=== PATIENT | female | born 1975 | race American Indian/Alaskan Native ===

== ENCOUNTER 2017-03-24 14:32 | Emergency (ER) | payer OTHER ==
[2017-03-24 14:37] VITALS: RESP 18
[2017-03-24] MEDS ORDERED: Sodium Chloride 0.9% 1,000 ML IV ONE (15:17)
[2017-03-24] MEDS ORDERED: Sodium Chloride 0.9% 1,000 ML ONE (15:24)
[2017-03-24 15:37] LABS: BASO % 0.5 % (0.0-2.0); LYMPH % 14.4 % (20.0-40.0); MEAN CELL VOLUME 88.1 fL (81.0-99.0); MEAN CORPUSCULAR HEMOGLOBIN 28.9 pg (27.0-31.0); MEAN CORPUSCULAR HGB CONC 32.7 g/dL (33.0-37.0); MEAN PLATELET VOLUME 9.2 fL (7.2-11.7); MONO % 6.2 % (0.0-10.0); NEUT # 6.3 K/uL (1.8-7.0); NEUT % 77.9 % (50.0-75.0); RBC 3.83 Mil/uL (3.80-5.20); RED CELL DISTRIBUTION WIDTH 13.6 % (11.5-14.5); WHITE BLOOD COUNT 8.1 K/uL (4.8-10.8)
[2017-03-24 15:38] LABS: EOS # 0.1 K/uL (0.0-0.7); LYMPH # 1.2 K/uL (1.0-4.3); MONO # 0.5 K/uL (0.0-0.8)
[2017-03-24 16:07] LABS: ALBUMIN 3.9 g/dL (3.5-5.0)
[2017-03-24 16:10] LABS: GFR AFRICAN-AMERICAN > 60; GFR NON-AFRICAN AMERICAN > 60
[2017-03-24 16:11] LABS: ALB/GLOB RATIO 1.1 (1.0-2.1); ALT/SGPT 40 U/L (9-52); AST/SGOT 43 U/L (14-36); BLOOD UREA NITROGEN 15 mg/dL (7-17); MAGNESIUM 1.8 mg/dL (1.6-2.3)
[2017-03-24] MEDS ORDERED: Potassium Chloride 20 mEq ER Tab PO STA (16:24)
[2017-03-24] MEDS ORDERED: Potassium Chloride 20 mEq ER Tab PO ONE (17:00)
[2017-03-24 17:56] LABS: SQUAMOUS EPITHIAL 3 /hpf (0-5); URINE BILIRUBIN NEGATIVE (NEGATIVE); URINE BLOOD 2+ (NEGATIVE); URINE CLARITY Clear (Clear); URINE COLOR Yellow (YELLOW); URINE GLUCOSE (UA) NORMAL (Normal); URINE LEUKOCYTE ESTERASE NEG Leu/uL (Negative); URINE NITRATE NEGATIVE (NEGATIVE); URINE PROTEIN NEGATIVE (NEGATIVE)
[2017-03-24 18:00] LABS: HCG,QUALITATIVE URINE NEGATIVE (NEGATIVE)
[2017-03-24 18:01] VITALS: BP 140/76; PULSE 68; TEMP 97.9
[2017-03-24 18:02] VITALS: O2SAT 99
--- NOTE | 2017-03-24 18:02 | C.PDOC ---
Time Seen by Provider: 03/24/17 15:07 Chief Complaint (Nursing): Dizziness/Lightheaded History Per: Patient Onset/Duration Of Symptoms: Days (1), Intermittent Episodes Current Symptoms Are (Timing): Still Present Associated Symptoms Preceding Syncopal Episode: Lightheadedness, Worse With Standing Seizure Or Post-ictal Symptoms: None Possible Causative Factor(s): Lightheaded W/Exertion Fall Associated With With Symptoms: No Severity: Moderate Recent travel outside of the [place]: No Additional History Per: Prior Records - Symptoms Of CVA Associated Symptoms: denies: Impaired Speech, Seizure Activity, New Vision Deficit(Left), New Vision Deficit(Right), Decreased Ability To Walk, New Confusion Recent Head Trauma: No Past Medical History Reviewed: Historical Data, Nursing Documentation, Vital Signs Vital Signs: Last Vital Signs Temp 97.9 F 03/24/17 18:00 Pulse 68 03/24/17 18:00 Resp 18 03/24/17 18:00 BP 140/76 03/24/17 18:00 Pulse Ox 99 03/24/17 18:02 - Medical History PMH: Gastritis, HTN Family History: States: Unknown Family Hx, Diabetes - Social History Hx Tobacco Use: No Hx Alcohol Use: Yes Hx Substance Use: No - Immunization History Hx Tetanus Toxoid Vaccination: No Hx Influenza Vaccination: No Hx Pneumococcal Vaccination: No Review Of Systems Except As Marked, All Systems Reviewed And Found Negative. Constitutional: Negative for: Fever, Weakness Cardiovascular: Negative for: Chest Pain Respiratory: Negative for: Shortness of Breath Gastrointestinal: Negative for: Vomiting, Abdominal Pain Genitourinary: Negative for: Dysuria Musculoskeletal: Positive for: Foot Pain (right, for 1 year). Negative for: Neck Pain, Back Pain Skin: Negative for: Rash Neurological: Negative for: Weakness, Numbness, Incoordination, Change in Speech , Confusion, Seizures, Altered Mental Status, Headache Physical Exam - Physical Exam Appears: Non-toxic, No Acute Distress Skin: Normal Color, Warm, Dry, No Rash Head: Atraumatic, Normacephalic Eye(s): bilateral: Normal Inspection, PERRL, EOMI Neck: Normal ROM, Supple Cardiovascular: Rhythm Regular Respiratory: Normal Breath Sounds, No Accessory Muscle Use Gastrointestinal/Abdominal: Soft, No Tenderness Back: No CVA Tenderness Extremity: Normal ROM, Tenderness (mild, at left calcaneous), No Pedal Edema, No Calf Tenderness, Capillary Refill (wnl), No Deformity, No Swelling Extremity: Bilateral: Normal Color And Temperature Pulses: Right Dorsalis Pedis: Normal Neurological/Psych: Oriented x3, Normal Speech, Normal Cognition, No Cerebellar Signs, Normal Motor, Normal Sensation ED Course And Treatment - Laboratory Results Result Diagrams: 03/24/17 15:33 03/24/17 15:33 Interpretation Of Abnormal: Mild hypokalemia, otherwise unremarkable. Urine POC: Negative ECG: Interpreted By Me, Viewed By Me ECG Rhythm: Sinus Rhythm, Nonspecific Changes ECG Interpretation: No Acute Changes Rate From EC O2 Sat by Pulse Oximetry: 99 Pulse Ox Interpretation: Normal Progress - Interventions Interventions:: Observation, Intravenous fluid - Data Reviewed Data Reviewed: Lab, EKG, Old records - Patient Status Patient status: Completely improved - Continuity of Care Discussed patient case with:: Patient, ED Nurse - Patient Plan Patient Plan: Discharge, F/U with PCP Disposition Counseled Patient/Family Regarding: Studies Performed, Diagnosis, Need For Followup - Disposition Referrals: Karlos Baxter MD [Staff Provider] - Disposition: HOME/ ROUTINE Disposition Time: 18:12 Condition: IMPROVED Additional Instructions: Follow up with your doctor within 1-2 days for further evaluation and treatment. Follow up with a [employer] (foot doctor). Return to the ER if you develop worsening of symptoms or if you have any other concerns. Instructions: Lightheadedness (ED), Heel Spur (ED) - Clinical Impression Clinical Impression: Dizziness, Chronic pain of right heel
--- NOTE | 2017-03-26 11:48 | CARD ---
APPROVED REPORT EKG Measurement Heart [id number] <Conclusion> Normal sinus rhythm Nonspecific T wave abnormality Abnormal ECG
== END 2017-03-24 18:23 | disposition home or self-care (01) ==
LOC: C.ER 14:32
DX: R42 Dizziness and giddiness (principal); G89.29 Other chronic pain; M79.671 Pain in right foot
CPT/HCPCS: 80053; 81001; 83735; 84484; 84703; 85025; 93005; 96374; 99285; J1885; J7040

== ENCOUNTER 2018-02-20 06:38 | Emergency (ER) | payer OTHER ==
[2018-02-20 06:39] VITALS: BMI 39.4
[2018-02-20 06:47] VITALS: TEMP 97.1
[2018-02-20 07:10] LABS: BASO # 0.1 K/uL (0.0-0.2); BASO % 0.9 % (0.0-2.0); EOS % 0.6 % (0.0-4.0); HEMOGLOBIN 12.8 g/dL (11.0-16.0); LYMPH # 1.7 K/uL (1.0-4.3); LYMPH % 21.9 % (20.0-40.0); MEAN CELL VOLUME 88.8 fL (81.0-99.0); MEAN CORPUSCULAR HEMOGLOBIN 29.1 pg (27.0-31.0); MEAN CORPUSCULAR HGB CONC 32.8 g/dL (33.0-37.0); MEAN PLATELET VOLUME 9.5 fL (7.2-11.7); MONO # 0.6 K/uL (0.0-0.8); MONO % 7.4 % (0.0-10.0); NEUT # 5.4 K/uL (1.8-7.0); NEUT % 69.2 % (50.0-75.0); NRBC % 0.1 % (0.0-2.0); RBC 4.39 Mil/uL (3.80-5.20); RED CELL DISTRIBUTION WIDTH 12.9 % (11.5-14.5); WHITE BLOOD COUNT 7.8 K/uL (4.8-10.8)
[2018-02-20 07:25] VITALS: RESP 18
[2018-02-20 07:36] LABS: ALB/GLOB RATIO 1.1 (1.0-2.1); ALBUMIN 4.5 g/dL (3.5-5.0); ALT/SGPT 23 U/L (9-52); AST/SGOT 34 U/L (14-36); BLOOD UREA NITROGEN 10 mg/dL (7-17); CALCIUM 8.8 mg/dl (8.6-10.4); GFR AFRICAN-AMERICAN > 60; GFR NON-AFRICAN AMERICAN > 60
[2018-02-20 07:40] LABS: HCG,QUALITATIVE URINE NEGATIVE (NEGATIVE)
[2018-02-20 07:46] LABS: SQUAMOUS EPITHIAL 1 /hpf (0-5); URINE AMORPHOUS SEDIMENT FEW /ul (<OCC); URINE BILIRUBIN NEGATIVE (NEGATIVE); URINE BLOOD 2+ (NEGATIVE); URINE CLARITY Hazy (Clear); URINE COLOR Yellow (YELLOW); URINE GLUCOSE (UA) 3+ mg/dL (Normal); URINE LEUKOCYTE ESTERASE NEG Leu/uL (Negative); URINE PROTEIN 1+ mg/dL (NEGATIVE); URINE UROBILINOGEN NORMAL mg/dL (0.2-1.0)
--- NOTE | 2018-02-20 08:14 | C.PDOC ---
History Of Present Illness Patient is a 42 y/o female who presents to the ED with a complaint of epigastric abdominal pain associated with nonbloody nausea and vomiting since midnight. Contrary to triage, patient notes abdominal pain radiates to upper chest and back. Denies any diarrhea, sick contact, recent travel, or Hx of abdominal surgeries. Time Seen by Provider: 02/20/18 07:09 Chief Complaint (Nursing): Chest Pain History Per: Patient History/Exam Limitations: no limitations Onset/Duration Of Symptoms: Hrs (since midnight) Current Symptoms Are (Timing): Still Present Associated Symptoms: Nausea, Other (nonbloody vomiting) Past Medical History Reviewed: Historical Data, Nursing Documentation, Vital Signs Vital Signs: Last Vital Signs Temp 97.1 F L 02/20/18 06:44 Pulse 80 02/20/18 10:16 Resp 18 02/20/18 10:16 BP 138/88 02/20/18 10:16 Pulse Ox 98 02/20/18 13:19 - Medical History PMH: Gastritis, HTN Surgical History: No Surg Hx Family History: States: Diabetes - Social History Hx Tobacco Use: No Hx Alcohol Use: Yes Hx Substance Use: No - Immunization History Hx Tetanus Toxoid Vaccination: No Hx Influenza Vaccination: No Hx Pneumococcal Vaccination: No Review Of Systems Gastrointestinal: Positive for: Abdominal Pain. Negative for: Diarrhea Physical Exam - Physical Exam Appears: Well, Non-toxic, No Acute Distress Skin: Normal Color, Warm, Dry Head: Atraumatic, Normacephalic Oral Mucosa: Moist Chest: Symmetrical Cardiovascular: Rhythm Regular, No Murmur Respiratory: Normal Breath Sounds, No Rales, No Rhonchi, No Wheezing Gastrointestinal/Abdominal: Bowel Sounds, Soft, Tenderness (tenderness to epigastrum), No Guarding, No Rebound Neurological/Psych: Oriented x3, Normal Speech, Normal Cognition ED Course And Treatment - Laboratory Results Result Diagrams: 02/20/18 07:05 02/20/18 07:05 ECG: Interpreted By Me, Viewed By Me ECG Rhythm: Sinus Rhythm Interpretation Of ECG: Normal axis, normal intervals. Nonspecific t wave changes. Rate From EC (bpm) O2 Sat by Pulse Oximetry: 98 - Other Rad obstructive series X-Ray: Interpreted by Me, Viewed By Me Interpretation: PROCEDURE: Radiographs of the chest and abdomen (obstructive series). HISTORY: abd. pain. COMPARISON: No prior. TECHNIQUE: AP radiograph of the chest, with upright and supine radiographs of the abdomen. FINDINGS: CHEST: Lungs: Clear. Cardiovascular: Normal size heart. No pulmonary vascular congestion. Pleura: No pleural fluid. No pneumothorax. Other findings: None. ABDOMEN AND PELVIS: Bowel: Mild constipation, otherwise unremarkable bowel gas pattern. No evidence of mechanical obstruction. Free air : None. Bones: Unremarkable. Other findings: None. IMPRESSION: Mild constipation, otherwise unremarkable radiographs of chest and abdomen. No evidence of mechanical bowel obstruction. Progress Note: Assessment: abdominal pain. EKG and obstructive series ordered. Protonix, zofran, and toradol administered. On re-eval, patient is resting comfortably and abdominal pain resolved. Discharge instructions discussed with patient and patient advised to follow up with urologist today. Medical Decision Making Medical Decision Making: patient states improvement. Discussed elevated blood sugar and need to follow up with pmd. patient discharged home and advised to follow up accordingly. Disposition Counseled Patient/Family Regarding: Studies Performed, Diagnosis, Need For Followup, Rx Given - Disposition Referrals: Karlos Baxter MD [Staff Provider] - Disposition: HOME/ ROUTINE Disposition Time: 09:42 Condition: IMPROVED Additional Instructions: follow up with your doctor within 2 days call to make an appointment take medications as prescribed your blood sugar was elevated and will require monitoring by your doctor return to RE if symptoms worsens or progress Prescriptions: Famotidine [Pepcid] 20 mg PO BID #20 tab Ondansetron ODT [Zofran ODT] 4 mg PO TID PRN #12 odt PRN Reason: Nausea/Vomiting traMADol [Ultram] 50 mg PO TID PRN #8 tab PRN Reason: Pain, Moderate (4-7) Instructions: Acute Abdomen (Belly Pain), Adult (DC) Forms: [facility] (Frisian), General Discharge Instructions - Clinical Impression Clinical Impression: Abdominal pain - Scribe Statement The provider has reviewed the documentation as recorded by the Scribe Ashley Peña All medical record entries made by the Scribe were at my direction and personally dictated by me. I have reviewed the chart and agree that the record accurately reflects my personal performance of the history, physical exam, medical decision making, and the department course for this patient. I have also personally directed, reviewed, and agree with the discharge instructions and disposition.
--- NOTE | 2018-02-20 08:33 | RAD ---
PROCEDURE: Radiographs of the chest and abdomen (obstructive series) HISTORY: abd. pain COMPARISON: No prior. TECHNIQUE: AP radiograph of the chest, with upright and supine radiographs of the abdomen. FINDINGS: CHEST: Lungs: Clear. Cardiovascular: Normal size heart. No pulmonary vascular congestion. Pleura: No pleural fluid. No pneumothorax. Other findings: None. ABDOMEN AND PELVIS: Bowel: Mild constipation, otherwise unremarkable bowel gas pattern. No evidence of mechanical obstruction. Free air: None. Bones: Unremarkable. Other findings: None. IMPRESSION: Mild constipation, otherwise unremarkable radiographs of chest and abdomen. No evidence of mechanical bowel obstruction.
[2018-02-20 10:17] VITALS: BP 138/88; PULSE 80
[2018-02-20 13:19] VITALS: O2SAT 98
--- NOTE | 2018-02-24 22:48 | CARD ---
APPROVED REPORT EKG Measurement Heart [id number] <Conclusion> Normal sinus rhythm Possible Left atrial enlargement Nonspecific T wave abnormality Prolonged QT Abnormal ECG
== END 2018-02-20 10:17 | disposition home or self-care (01) ==
LOC: C.ER 06:38
DX: R10.13 Epigastric pain (principal)
CPT/HCPCS: 74022; 80053; 81001; 83690; 84484; 84703; 85025; 96374; 96375; 96376; 99285; C9113; J1885; J2405

== ENCOUNTER 2018-05-07 17:03 | Emergency (ER) | payer OTHER ==
[2018-05-07 17:04] VITALS: BMI 39.4
[2018-05-07 17:51] VITALS: BP 147/83; PULSE 73; RESP 16; O2SAT 98
--- NOTE | 2018-05-07 18:31 | C.PDOC ---
History Of Present Illness 43 year old female presents to the emergency department for evaluation of a right second finger injury sustained two weeks ago. Patient states that her finger was accidentally pinched, and she is currently concerned about a persistent lesion to the inside of her finger. Otherwise, she states that she is able to use her hand without difficulty and denies swelling. Time Seen by Provider: 05/07/18 18:28 Chief Complaint (Nursing): Medical Clearance History Per: Patient History/Exam Limitations: no limitations Onset/Duration Of Symptoms: Other (two weeks) Current Symptoms Are (Timing): Still Present Past Medical History Reviewed: Historical Data, Nursing Documentation, Vital Signs Vital Signs: Last Vital Signs Temp Pulse 73 05/07/18 17:41 Resp 16 05/07/18 17:41 BP 147/83 05/07/18 17:41 Pulse Ox 98 05/07/18 18:31 - Medical History PMH: Gastritis, HTN Denies: Chronic Kidney Disease Surgical History: No Surg Hx Family History: States: Diabetes - Social History Hx Tobacco Use: No Hx Alcohol Use: Yes Hx Substance Use: No - Immunization History Hx Tetanus Toxoid Vaccination: No Hx Influenza Vaccination: No Hx Pneumococcal Vaccination: No Review Of Systems Except As Marked, All Systems Reviewed And Found Negative. Musculoskeletal: Positive for: Hand Pain (right second finger) Skin: Positive for: Lesions (right second finger). Negative for: Other ( swelling) Neurological: Negative for: Weakness, Numbness Physical Exam - Physical Exam Appears: Non-toxic, No Acute Distress Skin: Warm, Dry, Other (4mm healing blood blister over the PIP joint of the right second finger, flat, non-fluctuant, no cellulitis, no swelling) Head: Atraumatic, Normacephalic Eye(s): bilateral: Normal Inspection Nose: Normal Neck: Normal, Supple Chest: Symmetrical Cardiovascular: Rhythm Regular Respiratory: Normal Breath Sounds Extremity: Normal ROM (at the right second finger), No Tenderness, No Swelling ED Course And Treatment O2 Sat by Pulse Oximetry: 98 (RA) Pulse Ox Interpretation: Normal Progress Note: Patient is clear for discharge. Disposition Counseled Patient/Family Regarding: Diagnosis, Need For Followup - Disposition Referrals: YOUR,PMD [Other] Disposition: HOME/ ROUTINE Disposition Time: 18:30 Condition: GOOD Forms: [facility] (Belarusian), General Discharge Instructions - Clinical Impression Clinical Impression: Blister of finger without infection - Scribe Statement The provider has reviewed the documentation as recorded by the Scribe (Steve Blanco) Provider Attestation: All medical record entries made by the Scribe were at my direction and personally dictated by me. I have reviewed the chart and agree that the record accurately reflects my personal performance of the history, physical exam, medical decision making, and the department course for this patient. I have also personally directed, reviewed, and agree with the discharge instructions and disposition.
== END 2018-05-07 18:38 | disposition home or self-care (01) ==
LOC: C.ER 17:03
DX: S60.420A Blister (nonthermal) of right index finger, initial encounter (principal); W23.0XXA Caught, crushed, jammed, or pinched between moving objects, initial encounter; I10 Essential (primary) hypertension

== ENCOUNTER 2018-12-20 04:39 | Emergency (ER) | payer OTHER ==
[2018-12-20 04:40] VITALS: BMI 39.4
[2018-12-20 05:08] VITALS: TEMP 98.6; O2SAT 99
[2018-12-20 07:09] VITALS: BP 147/88; PULSE 78; RESP 14
--- NOTE | 2018-12-20 07:38 | C.PDOC ---
History Of Present Illness 43 year old female, whose PMHx includes constipation, presents to the ED for evaluation of constipation for two days. Patient reports taking Magnesium Citrate with minimal relief. She is able to tolerate PO intake and denies fever, chills. Time Seen by Provider: 12/20/18 05:12 Chief Complaint (Nursing): GI Problem History Per: Patient History/Exam Limitations: no limitations Onset/Duration Of Symptoms: Days (2) Current Symptoms Are (Timing): Still Present Additional History Per: Patient Past Medical History Reviewed: Historical Data, Nursing Documentation, Vital Signs Vital Signs: Last Vital Signs Temp 98.6 F 12/20/18 04:51 Pulse 78 12/20/18 07:08 Resp 14 12/20/18 07:08 BP 147/88 12/20/18 07:08 Pulse Ox 99 12/20/18 07:08 - Medical History PMH: Gastritis, HTN Denies: Chronic Kidney Disease Surgical History: No Surg Hx Family History: States: Diabetes - Social History Hx Tobacco Use: No Hx Alcohol Use: Yes Hx Substance Use: No - Immunization History Hx Tetanus Toxoid Vaccination: No Hx Influenza Vaccination: No Hx Pneumococcal Vaccination: No Review Of Systems Constitutional: Negative for: Fever, Chills Gastrointestinal: Positive for: Constipation Physical Exam - Physical Exam Appears: Non-toxic, No Acute Distress Skin: Normal Color, Warm, Dry Head: Atraumatic, Normacephalic Eye(s): bilateral: Normal Inspection Oral Mucosa: Moist Neck: Supple Chest: Symmetrical, No Deformity, No Tenderness Cardiovascular: Rhythm Regular, No Murmur Respiratory: Normal Breath Sounds, No Rales, No Rhonchi, No Wheezing Gastrointestinal/Abdominal: Soft, No Tenderness, No Guarding, No Rebound Extremity: Normal ROM, Capillary Refill (less than 2 seconds ) Neurological/Psych: Oriented x3, Normal Speech, Normal Cognition ED Course And Treatment O2 Sat by Pulse Oximetry: 99 (on RA ) Pulse Ox Interpretation: Normal Medical Decision Making Medical Decision Making: Abdomen XR ordered and reviewed. Toradol IM given. On reassessment, patient is resting comfortably, showing no signs of distress and is stable for discharge. Patient is advised to f/u with her PMD within 1-2 days for further evaluation. Disposition - Disposition Referrals: Ramon Perez, [Non-Staff] - Disposition: HOME/ ROUTINE Disposition Time: 06:25 Condition: GOOD Additional Instructions: ASMITA NG, thank you for letting us take care of you today. The emergency medical care you received today was directed at your acute symptoms. If you were prescribed any medication, please fill it and take as directed. It may take several days for your symptoms to resolve. Return to the Emergency Department if your symptoms worsen, do not improve, or if you have any other problems. Please contact your doctor or call one of the physicians/clinics you have been referred to that are listed on the Patient Visit Information form that is included in your discharge packet. Bring any paperwork you were given at discharge with you along with any medications you are taking to your follow up visit. Our treatment cannot replace ongoing medical care by a primary care provider outside of the emergency department. Thank you for allowing the [facility] team to be part of your care today. Follow up with your primary care doctor for re-evaluation and further management. Prescriptions: Docusate [Colace] 100 mg PO Q8 PRN #20 cap PRN Reason: Constipation Sod Phos,M-B/Na Phos,Di-Ba [Fleet Enema] 133 ml RC ONCE PRN #2 enema PRN Reason: Constipation Instructions: Constipation, Adult (DC) Forms: [employer] (Sammarinese), Work Excuse - Clinical Impression Clinical Impression: Constipation - Scribe Statement The provider has reviewed the documentation as recorded by the Scribe (Anat Noguera) Provider Attestation: All medical record entries made by the Scribe were at my direction and personally dictated by me. I have reviewed the chart and agree that the record accurately reflects my personal performance of the history, physical exam, medical decision making, and the department course for this patient. I have also personally directed, reviewed, and agree with the discharge instructions and disposition.
--- NOTE | 2018-12-20 13:24 | RAD ---
Date of service: 12/20/2018 HISTORY: Chest pain, back pain and abdominal pain. COMPARISON: None available. TECHNIQUE: 1 view obtained. FINDINGS: BOWEL: Normal. No obstruction. No free air. BONES: Normal. OTHER FINDINGS: None. IMPRESSION: Unremarkable examination.
== END 2018-12-20 07:09 | disposition home or self-care (01) ==
LOC: C.ER 04:39
DX: K59.00 Constipation, unspecified (principal)

== ENCOUNTER 2018-12-26 22:48 | Observation (INO) | payer OTHER ==
[2018-12-26 22:49] VITALS: BMI 39.4
[2018-12-26] MEDS ORDERED: Sodium Chloride 0.9% 1,000 ML IV ONE (23:45)
--- NOTE | 2018-12-26 23:46 | C.PDOC ---
History Of Present Illness 43 year old female presents to the ED c/p chest pain and abdominal pain for the past few days. Patient reports chest pain worsens with deep breaths. Patient was seen in the ED on Thursday for same symptoms. Patient denies headache, visual changes, SOB, palpitations, rash, nausea, vomit, diarrhea, weakness, numbness. Chief Complaint (Nursing): Chest Pain History Per: Patient History/Exam Limitations: no limitations Onset/Duration Of Symptoms: Days Current Symptoms Are (Timing): Still Present Quality: "Pain" Exacerbating Factors: Deep Breathing Recent travel outside of the [place]: No Additional History Per: Patient Past Medical History Reviewed: Historical Data, Nursing Documentation, Vital Signs Vital Signs: Last Vital Signs Temp 98.4 F 12/26/18 22:54 Pulse 70 12/26/18 22:54 Resp 18 12/26/18 22:54 BP 160/117 H 12/26/18 22:54 Pulse Ox 99 12/26/18 22:54 - Medical History PMH: Gastritis, HTN Denies: Chronic Kidney Disease Surgical History: No Surg Hx Family History: States: Diabetes - Social History Hx Tobacco Use: No Hx Alcohol Use: Yes Hx Substance Use: No - Immunization History Hx Tetanus Toxoid Vaccination: No Hx Influenza Vaccination: No Hx Pneumococcal Vaccination: No Review Of Systems Constitutional: Negative for: Fever, Chills Cardiovascular: Positive for: Chest Pain. Negative for: Palpitations Respiratory: Negative for: Cough, Shortness of Breath Gastrointestinal: Positive for: Abdominal Pain. Negative for: Nausea, Vomiting, Diarrhea Genitourinary: Negative for: Dysuria, Hematuria Musculoskeletal: Negative for: Back Pain Skin: Negative for: Rash Physical Exam - Physical Exam Appears: Non-toxic, No Acute Distress Skin: Normal Color, Warm, Dry Head: Atraumatic, Normacephalic Eye(s): bilateral: Normal Inspection Oral Mucosa: Moist Neck: Normal ROM, Supple Chest: Symmetrical, No Tenderness Cardiovascular: Rhythm Regular Respiratory: Normal Breath Sounds, No Rales, No Rhonchi, No Wheezing Gastrointestinal/Abdominal: Soft, Tenderness (Epigastric/upper quadrants), No Distention, No Guarding, No Rebound Back: No CVA Tenderness Extremity: Normal ROM, No Tenderness, No Swelling Neurological/Psych: Oriented x3, Normal Speech, Normal Cognition Gait: Steady ED Course And Treatment - Laboratory Results Result Diagrams: 12/26/18 23:59 12/26/18 23:59 ECG: Interpreted By Me, Viewed By Me ECG Rhythm: Sinus Rhythm ECG Interpretation: Normal, No Acute Changes Interpretation Of ECG: NSR, normal tracings. Rate From EC O2 Sat by Pulse Oximetry: 99 (ON RA) Pulse Ox Interpretation: Normal - CT Scan/US CT abd/pelvis Other Rad Studies (CT/US): Read By Radiologist, Radiology Report Reviewed CT/US Interpretation: T SCAN OF THE ABDOMEN AND PELVIS WITHOUT ORAL OR IV CONTRAST. CLINICAL INDICATION: Abdominal pain. TECHNIQUE: Axial and reformatted sagittal and coronal images of the abdomen pelvis obtained without IV contrast administration. COMPARISON: None. FINDINGS: The visualized lung bases are unremarkable. Normal unenhanced liver. Minimal diffuse thickening of the gallbladder and nondilated extrahepatic biliary system. Normal unenhanced spleen. Normal pancreas. . Normal bilateral adrenal glands. Normal size of the right kidney. There is no right renal mass. There are no right renal calculi. There is no right hydronephrosis. Normal visualized right ureter. Normal size of the left kidney. There is no left renal mass. There are no left renal calculi. There is no left hydronephrosis. Normal visualized left ureter. Normal visualized stomach. Normal small intestine. Normal colon. The appendix is visualized and appears normal. There is no demonstrated peritoneal fluid. Normal abdominal aorta. Normal inferior vena cava. Normal retroper itoneum. . Normal urinary bladder. There is no pelvic mass lesion or lymphadenopathy. There is no pelvic fluid. . Normal abdominal wall. Normal osseous structures. IMPRESSION: Minimal diffuse thickening of the gallbladder. . Electronically signed on Dec 27, 2018 2:33:45 AM EDT by: Charissa Monge M.D., Certified by ABR, MSK, Neuroradiology Medical Decision Making Medical Decision Making: Plan: * CT abd/pelvis * EKG * Labs * Protonix 40 mg IVP * IV fluids * Toradol 30 mg IVP * UA Disposition Discussed With : Livia Noguera Doctor Will See Patient In The: Hospital Counseled Patient/Family Regarding: Diagnosis - Disposition Disposition: HOSPITALIZED Disposition Time: 02:50 Condition: STABLE Forms: [facility] (Bulgarian) - POA Present On Arrival: None - Clinical Impression Clinical Impression: Chest pain, Abdominal pain - Scribe Statement The provider has reviewed the documentation as recorded by the Scriblizette Lutz All medical record entries made by the Fannyiblizette were at my direction and personally dictated by me. I have reviewed the chart and agree that the record accurately reflects my personal performance of the history, physical exam, medical decision making, and the department course for this patient. I have also personally directed, reviewed, and agree with the discharge instructions and disposition.
[2018-12-26] MEDS ORDERED: Iodixanol 320 MG/ML 100 ML BOTTLE IV ONE (23:55)
[2018-12-26] MEDS ORDERED: Sodium Chloride 0.9% 1,000 ML ONE (23:55)
[2018-12-27 00:06] LABS: BASO # 0.1 K/uL (0.0-0.2); EOS # 0.2 K/uL (0.0-0.7); EOS % 3.1 % (0.0-4.0); HEMOGLOBIN 10.6 g/dL (11.0-16.0); LYMPH # 1.8 K/uL (1.0-4.3); LYMPH % 35.3 % (20.0-40.0); MEAN CELL VOLUME 84.1 fL (81.0-99.0); MEAN CORPUSCULAR HEMOGLOBIN 27.3 pg (27.0-31.0); MEAN CORPUSCULAR HGB CONC 32.4 g/dL (33.0-37.0); MEAN PLATELET VOLUME 9.3 fL (7.2-11.7); MONO # 0.5 K/uL (0.0-0.8); MONO % 10.7 % (0.0-10.0); NEUT # 2.5 K/uL (1.8-7.0); NEUT % 49.9 % (50.0-75.0); NRBC % 0.1 % (0.0-2.0); RBC 3.89 Mil/uL (3.80-5.20); RED CELL DISTRIBUTION WIDTH 14.4 % (11.5-14.5); WHITE BLOOD COUNT 5.1 K/uL (4.8-10.8)
[2018-12-27 00:15] LABS: SQUAMOUS EPITHIAL 1 /hpf (0-5)
[2018-12-27 00:17] LABS: URINE CLARITY Clear (Clear); URINE COLOR YELLOW (YELLOW)
[2018-12-27 00:18] LABS: URINE BILIRUBIN NEGATIVE (NEGATIVE); URINE BLOOD NEGATIVE (NEGATIVE); URINE GLUCOSE (UA) NEGATIVE (Normal); URINE PROTEIN NEGATIVE (NEGATIVE)
[2018-12-27 00:19] LABS: URINE LEUKOCYTE ESTERASE NEGATIVE Leu/uL (Negative); URINE UROBILINOGEN 0.2 mg/dL (0.2-1.0)
[2018-12-27 00:53] LABS: ALT/SGPT 29 U/L (9-52); AST/SGOT 32 U/L (14-36); BLOOD UREA NITROGEN 7 mg/dL (7-17); LIPASE 84 U/L (23-300)
[2018-12-27 01:00] LABS: ALB/GLOB RATIO 1.5 (1.0-2.1); ALBUMIN 4.3 g/dL (3.5-5.0); CALCIUM 8.6 mg/dl (8.6-10.4); GFR NON-AFRICAN AMERICAN > 60
[2018-12-27] MEDS ORDERED: Iohexol 240 (50 ml) ONE (01:30)
--- NOTE | 2018-12-27 09:08 | RAD ---
Chest x-ray two views HISTORY: Chest pain. COMPARISON: 11/05/2016 FINDINGS: Mild venous congestion. Suggestion of some consolidative changes in the right infrahilar region. Top normal heart size. Degenerative changes in the spine. Prominent bibasilar breast shadows. Impression: Mild venous congestion. Suggestion of some consolidative changes in the right infrahilar region.
--- NOTE | 2018-12-27 09:23 | CP.PCM.CON ---
<Dheeraj Noguera - Last Filed: 12/27/18 17:07> History of Present Illness - History of Present Illness History of Present Illness: PGY5 GI Initial Consult Cherie Cueva is a 43F w/ hx of HTn who presents to the Ed with complaints of chest tightness, abd pain, and back pain. Pt states that the pain is located in upper quadrants B/L and across the scapula. She denies any alleviating factors. She notes worsening of symptoms after deep breath. Pt states that her symptoms after 2 weeks prior. She presented to the ED for further evaluation on 12/21/2018. She was diagnosed with probable constipation and recommended enema and mag citrate. Pt states after administering these two meds, she only had minimal BM. She notes having a BM every 2 days and minimal amount. Denies any rectal bleeding or hard stool. Pt states that she has attempted to change her diet to incorporate more fiber, but there is no change to her symptoms. She denies any previous colonoscopy and endoscopy. Pt also had an elevated d-dimer and being ruled out for PE. Since admission, pt notes improving in her abd pain, back pain and chest pain. PMHx: HTN PSHx: None Family hx: Mother: HCC; father bone cancer? Social hx: social drinker (few drinks every 3-4 weeks), denies smoking or illicit drugs Endo hx: none ROS: 12 point ROS conducted, neg other than above Past Patient History - Infectious Disease Hx of Infectious Diseases: None - Past Social History Smoking Status: Never Smoked - CARDIAC Hx Hypertension: Yes - PULMONARY Hx Respiratory Disorders: No - NEUROLOGICAL Hx Neurological Disorder: No - HEENT Hx HEENT Problems: No - RENAL Hx Chronic Kidney Disease: No - ENDOCRINE/METABOLIC Hx Endocrine Disorders: No - HEMATOLOGICAL/ONCOLOGICAL Hx Blood Disorders: No - INTEGUMENTARY Hx Dermatological Problems: No - MUSCULOSKELETAL/RHEUMATOLOGICAL Hx Falls: No - GASTROINTESTINAL Hx Gastritis: Yes - GENITOURINARY/GYNECOLOGICAL Hx Genitourinary Disorders: Yes Other/Comment: PCOS - PSYCHIATRIC Hx Substance Use: No - SURGICAL HISTORY Hx Surgeries: Yes Other/Comment: Breast reduction - ANESTHESIA Hx Anesthesia: Yes Hx Anesthesia Reactions: No Meds Allergies/Adverse Reactions: Allergies Allergy/AdvReac Type Severity Reaction Status Date / Time IV DYE Allergy Intermediate RASH Uncoded 12/26/18 22:58 - Medications Medications: Current Medications Aspirin (Aspirin Chewable) 81 mg PO DAILY [facility] Diltiazem HCl (Cardizem Cd) 360 mg PO DAILY [facility] Moxifloxacin HCl (Avelox Iv 400mg/250ml Ns) 400 mg in 250 mls @ 167 mls/hr IVPB Q24H [facility]; Protocol Ketorolac Tromethamine (Toradol) 15 mg IVP Q8 PRN PRN Reason: Pain, Mild (1-3) Pantoprazole Sodium (Protonix Ec Tab) 40 mg PO DAILY [facility] Physical Exam - Constitutional Appears: Non-toxic, No Acute Distress - Head Exam Head Exam: ATRAUMATIC, NORMOCEPHALIC - Eye Exam Eye Exam: Normal appearance - ENT Exam ENT Exam: Mucous Membranes Moist, Normal Exam - Neck Exam Neck exam: Positive for: Normal Inspection - Respiratory Exam Respiratory Exam: Clear to Auscultation Bilateral, NORMAL BREATHING PATTERN. absent: Rales, Rhonchi, Wheezes, Respiratory Distress, Stridor - Cardiovascular Exam Cardiovascular Exam: REGULAR RHYTHM, +S1, +S2 - GI/Abdominal Exam GI & Abdominal Exam: Normal Bowel Sounds, Soft. absent: Diminished Bowel Sounds, Distended, Firm, Guarding, Hernia, Organomegaly, Rebound, Rigid, Tenderness - Extremities Exam Extremities exam: Negative for: joint swelling, pedal edema - Neurological Exam Neurological exam: Alert, Oriented x3 - Psychiatric Exam Psychiatric exam: Normal Affect, Normal Mood - Skin Skin Exam: Dry, Intact, Normal Color, Warm Results - Vital Signs Recent Vital Signs: Last Vital Signs Temp 97.8 F 12/27/18 07:05 Pulse 63 12/27/18 08:51 Resp 18 12/27/18 07:05 BP 136/78 12/27/18 07:05 Pulse Ox 97 12/27/18 07:05 - Labs Result Diagrams: 12/26/18 23:59 12/26/18 23:59 Labs: Laboratory Results - last 24 hr 12/26/18 12/26/18 12/26/18 23:59 23:59 23:59 WBC 5.1 RBC 3.89 Hgb 10.6 L D Hct 32.7 L MCV 84.1 D MCH 27.3 MCHC 32.4 L RDW 14.4 Plt Count 349 MPV 9.3 Neut % (Auto) 49.9 L Lymph % (Auto) 35.3 [place] % (Auto) 10.7 H Eos % (Auto) 3.1 Baso % (Auto) 1.0 Neut # (Auto) 2.5 Lymph # (Auto) 1.8 [place] # (Auto) 0.5 Eos # (Auto) 0.2 Baso # (Auto) 0.1 D-Dimer, Quantitative 265 H Sodium 135 Potassium 3.7 Chloride 102 Carbon Dioxide 27 Anion Gap 10 BUN 7 Creatinine 0.8 Est GFR ( Amer) > 60 Est GFR (Non-Af Amer) > 60 Random Glucose 126 H D Calcium 8.6 Total Bilirubin 1.1 AST 32 ALT 29 Alkaline Phosphatase 46 Troponin I < 0.0120 Total Protein 7.2 Albumin 4.3 Globulin 2.9 Albumin/Globulin Ratio 1.5 Lipase 84 Urine Color Urine Clarity Urine pH Ur Specific [place] Urine Protein Urine Glucose (UA) Urine Ketones Urine Blood Urine Nitrate Urine Bilirubin Urine Urobilinogen Ur Leukocyte Esterase Urine WBC (Auto) Urine RBC (Auto) Ur Squamous Epith Cells 12/26/18 23:59 WBC RBC Hgb Hct MCV MCH MCHC RDW Plt Count MPV Neut % (Auto) Lymph % (Auto) [place] % (Auto) Eos % (Auto) Baso % (Auto) Neut # (Auto) Lymph # (Auto) [place] # (Auto) Eos # (Auto) Baso # (Auto) D-Dimer, Quantitative Sodium Potassium Chloride Carbon Dioxide Anion Gap BUN Creatinine Est GFR ( Amer) Est GFR (Non-Af Amer) Random Glucose Calcium Total Bilirubin AST ALT Alkaline Phosphatase Troponin I Total Protein Albumin Globulin Albumin/Globulin Ratio Lipase Urine Color Yellow Urine Clarity Clear Urine pH 6.0 Ur Specific [place] 1.030 Urine Protein Negative Urine Glucose (UA) Negative Urine Ketones Negative Urine Blood Negative Urine Nitrate Negative Urine Bilirubin Negative Urine Urobilinogen 0.2 Ur Leukocyte Esterase Negative Urine WBC (Auto) 3 Urine RBC (Auto) 1 Ur Squamous Epith Cells 1 Assessment & Plan - Assessment and Plan (Free Text) Assessment: Cherie Cueva is a 43F w/ hx of HTN, asthma who presents to the Er with complaints of abd pain, chest tightness, and back pain. U/S Abd revealed mild GB wall thickening and Gallstone at the neck of the Gb; CBD 6.7 Acute on chronic constipation Abd pain etiology unclear, DDx: constipation; biliary colic Cholelithiasis GB stone at neck of GB Elevated D-dimer, r/o PE or DVT HTN GERD Plan: -diet as tolerated -start miralax BID -would minimize narcotic use -no plan for endoscopy at this time, but will reeval -encourage ambulation -continue protonix 40mg PO daily -rest of care as per primary team -can continue moxyfloxacin as per primary -consult General surgery D/w Dr. Guzman <King Guzman - Last Filed: 12/27/18 17:16> Meds - Medications Medications: Current Medications Aspirin (Aspirin Chewable) 81 mg PO DAILY [facility] Last Admin: 12/27/18 10:08 Dose: 81 mg Diltiazem HCl (Cardizem Cd) 360 mg PO DAILY [facility] Last Admin: 12/27/18 10:07 Dose: 360 mg Enoxaparin Sodium (Lovenox) 40 mg SC DAILY [facility] Last Admin: 12/27/18 10:07 Dose: 40 mg Moxifloxacin HCl (Avelox Iv 400mg/250ml Ns) 400 mg in 250 mls @ 167 mls/hr IVPB Q24H [facility]; Protocol Last Admin: 12/27/18 10:57 Dose: 167 mls/hr Ketorolac Tromethamine (Toradol) 15 mg IVP Q8 PRN PRN Reason: Pain, Mild (1-3) Last Admin: 12/27/18 15:42 Dose: 15 mg Mineral Oil (Fleet Mineral Oil Enema) 135 ml MD ONCE ONE Stop: 12/27/18 17:06 Pantoprazole Sodium (Protonix Ec Tab) 40 mg PO DAILY [facility] Last Admin: 12/27/18 10:07 Dose: 40 mg Polyethylene Glycol (Miralax) 17 gm PO BID [facility] Last Admin: 12/27/18 12:48 Dose: 17 gm Senna/Docusate Sodium (Senokot S 50 Mg-8.6 Mg) 1 tab PO HS [facility] Results - Vital Signs Recent Vital Signs: Last Vital Signs Temp 97.8 F 12/27/18 07:05 Pulse 68 12/27/18 16:00 Resp 18 12/27/18 07:05 BP 136/78 12/27/18 07:05 Pulse Ox 97 12/27/18 07:05 - Labs Result Diagrams: 12/26/18 23:59 12/26/18 23:59 Labs: Laboratory Results - last 24 hr 12/26/18 12/26/18 12/26/18 23:59 23:59 23:59 WBC 5.1 RBC 3.89 Hgb 10.6 L D Hct 32.7 L MCV 84.1 D MCH 27.3 MCHC 32.4 L RDW 14.4 Plt Count 349 MPV 9.3 Neut % (Auto) 49.9 L Lymph % (Auto) 35.3 [place] % (Auto) 10.7 H Eos % (Auto) 3.1 Baso % (Auto) 1.0 Neut # (Auto) 2.5 Lymph # (Auto) 1.8 [place] # (Auto) 0.5 Eos # (Auto) 0.2 Baso # (Auto) 0.1 D-Dimer, Quantitative 265 H Sodium 135 Potassium 3.7 Chloride 102 Carbon Dioxide 27 Anion Gap 10 BUN 7 Creatinine 0.8 Est GFR ( Amer) > 60 Est GFR (Non-Af Amer) > 60 Random Glucose 126 H D Calcium 8.6 Total Bilirubin 1.1 AST 32 ALT 29 Alkaline Phosphatase 46 Total Creatine Kinase CK-MB (Mass) Troponin I < 0.0120 Total Protein 7.2 Albumin 4.3 Globulin 2.9 Albumin/Globulin Ratio 1.5 Lipase 84 Urine Color Urine Clarity Urine pH Ur Specific [place] Urine Protein Urine Glucose (UA) Urine Ketones Urine Blood Urine Nitrate Urine Bilirubin Urine Urobilinogen Ur Leukocyte Esterase Urine WBC (Auto) Urine RBC (Auto) Ur Squamous Epith Cells 12/26/18 12/27/18 23:59 11:25 WBC RBC Hgb Hct MCV MCH MCHC RDW Plt Count MPV Neut % (Auto) Lymph % (Auto) [place] % (Auto) Eos % (Auto) Baso % (Auto) Neut # (Auto) Lymph # (Auto) [place] # (Auto) Eos # (Auto) Baso # (Auto) D-Dimer, Quantitative Sodium Potassium Chloride Carbon Dioxide Anion Gap BUN Creatinine Est GFR ( Amer) Est GFR (Non-Af Amer) Random Glucose Calcium Total Bilirubin AST ALT Alkaline Phosphatase Total Creatine Kinase 92 CK-MB (Mass) 0.26 Troponin I < 0.0120 Total Protein Albumin Globulin Albumin/Globulin Ratio Lipase Urine Color Yellow Urine Clarity Clear Urine pH 6.0 Ur Specific [place] 1.030 Urine Protein Negative Urine Glucose (UA) Negative Urine Ketones Negative Urine Blood Negative Urine Nitrate Negative Urine Bilirubin Negative Urine Urobilinogen 0.2 Ur Leukocyte Esterase Negative Urine WBC (Auto) 3 Urine RBC (Auto) 1 Ur Squamous Epith Cells 1 Attending/Attestation - Attestation I have personally seen and examined this patient.: Yes I have fully participated in the care of the patient.: Yes I have reviewed all pertinent clinical information: Yes Notes (Text): 12/27/18 17:11 I have seen and examined patient with GI fellow. Agree with above documentation with the following additions. In brief, this is a 43 year old female with history of HTN, obesity (BMI 40) who presents to hospital with complaint of progressive abdominal and chest pain for the past two weeks. She describes sharp, 6/10 intensity pain in bilateral upper quadrants radiating to scapula that is worse with deep breathing and following meal consumption. She denies associated nausea, vomiting, fever/chills, weight loss, rectal bleeding, or change in bowel habits. She does endorse long standing constipation, typically having a bowel movement every 2 days with a sensation of incomplete evacuation. No prior endoscopic evaluation. HTN Obesity Abdominal pain US imaging reviewed by me showing normal caliber CBD, cholelithiasis with stone impacted at GB neck and associated mild GB wall thickening - Low fat diet as tolerated - Maintain bowel regimen to prevent recurrent constipation - LFTs normal, continue to monitor - Recommend general surgery consult for evaluation of possible cholecystectomy - No further planned GI intervention at this time, will sign off case. Please reconsult as necessary, thank you.
--- NOTE | 2018-12-27 10:04 | CT ---
Date of service: 12/27/2018 PROCEDURE: CT Abdomen and Pelvis without intravenous contrast HISTORY: Abdominal pain COMPARISON: None. TECHNIQUE: CT scan of the abdomen and pelvis was performed without administration of intravenous contrast. Oral contrast was not administered. Coronal and sagittal reformatted images were obtained. Radiation dose: Total exam DLP = 1123.9 mGy-cm. This CT exam was performed using one or more of the following dose reduction techniques: Automated exposure control, adjustment of the mA and/or kV according to patient size, and/or use of iterative reconstruction technique. FINDINGS: LOWER THORAX: The visualized lungs are clear. LIVER: Normal in size. No gross lesion or ductal dilatation. GALLBLADDER AND BILE DUCTS: Well distended. No calcified gallstones. No common bile duct dilatation. PANCREAS: Normal in size. No gross lesion or ductal dilatation. SPLEEN: Normal in size. ADRENALS: Normal in size. No discrete nodule. KIDNEYS AND URETERS: Both kidneys are normal in size. No hydronephrosis or nephrolithiasis. VASCULATURE: Normal in caliber. No aortic aneurysm. No aortic atherosclerotic calcification or mural plaque present. BOWEL: Evaluation of the bowel is limited in the absence of oral contrast. The small bowel loops are normal in caliber. The colon is normal in size. No bowel dilatation or wall thickening. No bowel obstruction. APPENDIX: Normal appendix. PERITONEUM: No free fluid. No free air. LYMPH NODES: No enlarged lymph nodes. BLADDER: Well distended and normal in appearance. REPRODUCTIVE: The uterus is normal in size. BONES: No acute fracture. Within normal limits for the patient's age. OTHER FINDINGS: None. IMPRESSION: No acute abdominal or pelvic abnormality. A preliminary report was provided by [facility].
[2018-12-27] MEDS: Enoxaparin 40 mg Syringe SC SCH (10:07)
[2018-12-27] MEDS: diltiaZEM 180 mg/24 Hours CD Cap PO SCH (10:07)
[2018-12-27] MEDS: Pantoprazole 40 mg EC Tab PO SCH (10:07)
[2018-12-27] MEDS: Moxifloxacin IV 400mg/250ml NS 400 MG/250 ML BAG IVPB SCH (10:57)
--- NOTE | 2018-12-27 11:37 | US ---
Date of service: 12/27/2018 HISTORY: thickened GB wall in CT COMPARISON: CT abdomen and pelvis from 12/27/2018 TECHNIQUE: Grayscale imaging was performed. FINDINGS: LIVER: Measures 17.6 cm in length. There is diffuse increased echogenicity of the liver parenchyma. No mass. No intrahepatic bile duct dilatation. GALLBLADDER: The gallbladder is well distended. There is a solitary 1.7 cm stone in the neck of the gallbladder. There is mild gallbladder wall thickening which measures 4 mm. No pericholecystic fluid. The sonographic Knight's sign is negative. COMMON BILE DUCT: Measures 6.7 mm. No stones. No dilatation. PANCREAS: Unremarkable as visualized. No mass. No ductal dilatation. RIGHT KIDNEY: Measures 12.2 cm in length. Normal echogenicity. No calculus, mass, or hydronephrosis. AORTA: No aneurysmal dilatation. IVC: Unremarkable. OTHER FINDINGS: None . IMPRESSION: 1. Mild hepatomegaly and fatty liver. 2. 1.7 cm gallstone in the neck of the gallbladder and mild gallbladder wall thickening. No evidence of pericholecystic fluid. The sonographic Knight's sign is negative.
[2018-12-27 12:01] LABS: CK-MB 0.26 ng/mL (0.0-3.38)
[2018-12-27] MEDS: POLYETHYLENE GLYCOL 3350 17 GM/Dose PACKET PO SCH ×2 (12:48→17:16)
--- NOTE | 2018-12-27 12:54 | NM ---
Date of service: 12/27/2018 COMPARISON: December 27, 2018. TECHNIQUE: 13.6 mCi technetium 99-m Xe-133 Gas. 3.6 mCI technetium 99-m MAA administered intravenously. FINDINGS: VENTILATION COMPONENT: Normal. PERFUSION COMPONENT: Normal. IMPRESSION: Negative ventilation perfusion scan for pulmonary embolism.
[2018-12-27] MEDS ORDERED: Mineral Oil Enema 135 ml PR ONE (17:05)
[2018-12-27 19:04] VITALS: RESP 20
--- NOTE | 2018-12-27 19:10 | CP.PCM.HP ---
Past Patient History - Infectious Disease Hx of Infectious Diseases: None - Past Social History Smoking Status: Never Smoked - CARDIAC Hx Hypertension: Yes - PULMONARY Hx Respiratory Disorders: No - NEUROLOGICAL Hx Neurological Disorder: No - HEENT Hx HEENT Problems: No - RENAL Hx Chronic Kidney Disease: No - ENDOCRINE/METABOLIC Hx Endocrine Disorders: No - HEMATOLOGICAL/ONCOLOGICAL Hx Blood Disorders: No - INTEGUMENTARY Hx Dermatological Problems: No - MUSCULOSKELETAL/RHEUMATOLOGICAL Hx Falls: No - GASTROINTESTINAL Hx Gastritis: Yes - GENITOURINARY/GYNECOLOGICAL Hx Genitourinary Disorders: Yes Other/Comment: PCOS - PSYCHIATRIC Hx Substance Use: No - SURGICAL HISTORY Hx Surgeries: Yes Other/Comment: Breast reduction - ANESTHESIA Hx Anesthesia: Yes Hx Anesthesia Reactions: No Meds Allergies/Adverse Reactions: Allergies Allergy/AdvReac Type Severity Reaction Status Date / Time IV DYE Allergy Intermediate RASH Uncoded 12/26/18 22:58 Physical Exam - Constitutional Appears: Well - Head Exam Head Exam: ATRAUMATIC, NORMAL INSPECTION, NORMOCEPHALIC - Eye Exam Eye Exam: EOMI, Normal appearance, PERRL Pupil Exam: NORMAL ACCOMODATION, PERRL - ENT Exam ENT Exam: Mucous Membranes Moist, Normal Exam - Neck Exam Neck exam: Positive for: Normal Inspection - Respiratory Exam Respiratory Exam: Decreased Breath Sounds - Cardiovascular Exam Cardiovascular Exam: REGULAR RHYTHM, +S1, +S2 - GI/Abdominal Exam GI & Abdominal Exam: Diminished Bowel Sounds, Soft - Rectal Exam Rectal Exam: Deferred - Neurological Exam Neurological exam: Oriented x3 Results - Vital Signs Recent Vital Signs: Last Vital Signs Temp 98.1 F 12/27/18 15:25 Pulse 68 12/27/18 16:00 Resp 20 12/27/18 15:25 BP 129/79 12/27/18 15:25 Pulse Ox 95 12/27/18 15:25 - Labs Result Diagrams: 12/26/18 23:59 12/26/18 23:59 Labs: Laboratory Results - last 24 hr 12/26/18 12/26/18 12/26/18 23:59 23:59 23:59 WBC 5.1 RBC 3.89 Hgb 10.6 L D Hct 32.7 L MCV 84.1 D MCH 27.3 MCHC 32.4 L RDW 14.4 Plt Count 349 MPV 9.3 Neut % (Auto) 49.9 L Lymph % (Auto) 35.3 [place] % (Auto) 10.7 H Eos % (Auto) 3.1 Baso % (Auto) 1.0 Neut # (Auto) 2.5 Lymph # (Auto) 1.8 [place] # (Auto) 0.5 Eos # (Auto) 0.2 Baso # (Auto) 0.1 D-Dimer, Quantitative 265 H Sodium 135 Potassium 3.7 Chloride 102 Carbon Dioxide 27 Anion Gap 10 BUN 7 Creatinine 0.8 Est GFR ( Amer) > 60 Est GFR (Non-Af Amer) > 60 Random Glucose 126 H D Calcium 8.6 Total Bilirubin 1.1 AST 32 ALT 29 Alkaline Phosphatase 46 Total Creatine Kinase CK-MB (Mass) Troponin I < 0.0120 Total Protein 7.2 Albumin 4.3 Globulin 2.9 Albumin/Globulin Ratio 1.5 Lipase 84 Urine Color Urine Clarity Urine pH Ur Specific [place] Urine Protein Urine Glucose (UA) Urine Ketones Urine Blood Urine Nitrate Urine Bilirubin Urine Urobilinogen Ur Leukocyte Esterase Urine WBC (Auto) Urine RBC (Auto) Ur Squamous Epith Cells 12/26/18 12/27/18 23:59 11:25 WBC RBC Hgb Hct MCV MCH MCHC RDW Plt Count MPV Neut % (Auto) Lymph % (Auto) [place] % (Auto) Eos % (Auto) Baso % (Auto) Neut # (Auto) Lymph # (Auto) [place] # (Auto) Eos # (Auto) Baso # (Auto) D-Dimer, Quantitative Sodium Potassium Chloride Carbon Dioxide Anion Gap BUN Creatinine Est GFR ( Amer) Est GFR (Non-Af Amer) Random Glucose Calcium Total Bilirubin AST ALT Alkaline Phosphatase Total Creatine Kinase 92 CK-MB (Mass) 0.26 Troponin I < 0.0120 Total Protein Albumin Globulin Albumin/Globulin Ratio Lipase Urine Color Yellow Urine Clarity Clear Urine pH 6.0 Ur Specific [place] 1.030 Urine Protein Negative Urine Glucose (UA) Negative Urine Ketones Negative Urine Blood Negative Urine Nitrate Negative Urine Bilirubin Negative Urine Urobilinogen 0.2 Ur Leukocyte Esterase Negative Urine WBC (Auto) 3 Urine RBC (Auto) 1 Ur Squamous Epith Cells 1
[2018-12-27 20:10] LABS: CK-MB 0.26 ng/mL (0.0-3.38)
[2018-12-27] MEDS ORDERED: Docusate-Senna 50 mg-8.6 mg Tab PO SCH (22:00)
[2018-12-28 07:58] VITALS: TEMP 97.9
[2018-12-28] MEDS: Enoxaparin 40 mg Syringe SC SCH (09:07)
[2018-12-28] MEDS: Pantoprazole 40 mg EC Tab PO SCH (09:08)
[2018-12-28] MEDS: diltiaZEM 180 mg/24 Hours CD Cap PO SCH (09:08)
[2018-12-28] MEDS: Moxifloxacin IV 400mg/250ml NS 400 MG/250 ML BAG IVPB SCH (09:08)
[2018-12-28] MEDS: POLYETHYLENE GLYCOL 3350 17 GM/Dose PACKET PO SCH (09:09)
--- NOTE | 2018-12-28 15:56 | CP.PCM.PN ---
Subjective - Date & Time of Evaluation Date of Evaluation: 12/28/18 Time of Evaluation: 15:00 - Subjective Subjective: Patient seen today, states abdominal pain improved now , denies any chest pain, sob, oob ambulating the [address] way vss and labs reviewed troponin x 3 - negative Objective - Vital Signs/Intake and Output Vital Signs (last 24 hours): Temp Pulse Resp BP Pulse Ox 97.9 F 76 20 153/97 H 96 12/28/18 07:20 12/28/18 14:50 12/28/18 07:20 12/28/18 07:20 12/28/18 07:20 Intake and Output: 12/28/18 12/28/18 06:59 18:59 Intake Total 480 Balance 480 - Medications Medications: Current Medications Aspirin (Aspirin Chewable) 81 mg PO DAILY [facility] Last Admin: 12/28/18 09:08 Dose: 81 mg Diltiazem HCl (Cardizem Cd) 360 mg PO DAILY [facility] Last Admin: 12/28/18 09:08 Dose: 360 mg Enoxaparin Sodium (Lovenox) 40 mg SC DAILY [facility] Last Admin: 12/28/18 09:07 Dose: 40 mg Moxifloxacin HCl (Avelox Iv 400mg/250ml Ns) 400 mg in 250 mls @ 167 mls/hr IVPB Q24H [facility]; Protocol Last Admin: 12/28/18 09:08 Dose: 167 mls/hr Ketorolac Tromethamine (Toradol) 15 mg IVP Q8 PRN PRN Reason: Pain, Mild (1-3) Last Admin: 12/27/18 15:42 Dose: 15 mg Pantoprazole Sodium (Protonix Ec Tab) 40 mg PO DAILY [facility] Last Admin: 12/28/18 09:08 Dose: 40 mg Pneumococcal Polyvalent Vaccine (Pneumovax 23 Vaccine) 0.5 ml IM .ONCE ONE Stop: 12/29/18 10:01 Polyethylene Glycol (Miralax) 17 gm PO BID [facility] Last Admin: 12/28/18 09:09 Dose: Not Given Senna/Docusate Sodium (Senokot S 50 Mg-8.6 Mg) 1 tab PO HS [facility] Last Admin: 12/27/18 22:43 Dose: 1 tab - Labs Labs: 12/26/18 23:59 12/26/18 23:59 Assessment and Plan - Assessment and Plan (Free Text) Assessment: A/P 43 yr old female with pmhx of Gastritis, HTN admitted with abdominal pain and chest pain. troponin x 3 - negative VQ scan- negative . US abdomen -1.7 cm gallstone in the neck of the gallbladder and mild gallbladder wall thickening. No evidence of pericholecystic fluid. The sonographic Knight's sign is negative. GI - Dr. Guzman consulted for abdominal pain an d recommends low fat diet and bowl regimen and surgical consult seen by Dr. Alves and cleared for discharge home today with mirilax and protonic Dr. Palacios Surgery consulted for gallstone seen patient by Dr. Palacios and discussed with patient options an d elective procedure out patient f/u with Dr. Palacios office on and continue antibiotics for levaquin an dflagyl x 7 days discharge plan discussed with patient who understands an d agrees with plan RX given upon discharge patient instructed to returns to ED if symptoms returns
[2018-12-28 15:57] VITALS: BP 124/74; PULSE 74; O2SAT 97
--- NOTE | 2018-12-28 16:56 | CP.PCM.CON ---
History of Present Illness - History of Present Illness History of Present Illness: General Surgery Consult Note for Dr. Ray Reason for consult: abd pain, cholelithiasis 43F who presents with PMH of gastritis, HTN presents to [facility] for complaint of abdominal, chest and scapular pain. Patient states that she has had pain now for over 1 week. Patient reports that she has had multiple episodes of this pain in the past. Patient states that pain has resolved today but was excruciating for last two days. She reports that certain foods brings on her pain. She states pain is usually located in epigastric region and radiates to RUQ and back. Previously she has associated nausea but no vomiting. Denies fever/chills, palpitations, abd pain, n/v/d, urinary symptoms. PMH: HTN PSH: None ALL: IV dye Family: Mother - HCC; father - bone cancer Social: social drinker (few drinks every 3-4 weeks), denies smoking or illicit drugs, works as health safety coordinator at [employer] Review of Systems - Review of Systems All systems: reviewed and no additional remarkable complaints except (as per HPI) Past Patient History - Infectious Disease Hx of Infectious Diseases: None - Past Social History Smoking Status: Never Smoked - CARDIAC Hx Hypertension: Yes - PULMONARY Hx Respiratory Disorders: No - NEUROLOGICAL Hx Neurological Disorder: No - HEENT Hx HEENT Problems: No - RENAL Hx Chronic Kidney Disease: No - ENDOCRINE/METABOLIC Hx Endocrine Disorders: No - HEMATOLOGICAL/ONCOLOGICAL Hx Blood Disorders: No - INTEGUMENTARY Hx Dermatological Problems: No - MUSCULOSKELETAL/RHEUMATOLOGICAL Hx Falls: No - GASTROINTESTINAL Hx Gastritis: Yes - GENITOURINARY/GYNECOLOGICAL Hx Genitourinary Disorders: Yes Other/Comment: PCOS - PSYCHIATRIC Hx Substance Use: No - SURGICAL HISTORY Hx Surgeries: Yes Other/Comment: Breast reduction - ANESTHESIA Hx Anesthesia: Yes Hx Anesthesia Reactions: No Meds Home Medications: Home Medication List Medication Instructions Recorded Confirmed Type Docusate Sodium/Sennosides A 1 tab PO HS #30 tab 12/28/18 Rx [Senokot S 50 MG-8.6 MG] Pantoprazole [Protonix EC Tab] 40 mg PO DAILY #30 ect 12/28/18 Rx Polyethylene Glycol 3350 [Miralax] 17 gm PO BID 30 Days packet 12/28/18 Rx levoFLOXacin [Levaquin] 500 mg PO DAILY #7 tab 12/28/18 Rx metroNIDAZOLE [Flagyl] 500 mg PO Q8 #21 tab 12/28/18 Rx Allergies/Adverse Reactions: Allergies Allergy/AdvReac Type Severity Reaction Status Date / Time IV DYE Allergy Intermediate RASH Uncoded 12/26/18 22:58 - Medications Medications: Current Medications Aspirin (Aspirin Chewable) 81 mg PO DAILY [facility] Last Admin: 12/28/18 09:08 Dose: 81 mg Diltiazem HCl (Cardizem Cd) 360 mg PO DAILY [facility] Last Admin: 12/28/18 09:08 Dose: 360 mg Enoxaparin Sodium (Lovenox) 40 mg SC DAILY [facility] Last Admin: 12/28/18 09:07 Dose: 40 mg Moxifloxacin HCl (Avelox Iv 400mg/250ml Ns) 400 mg in 250 mls @ 167 mls/hr IVPB Q24H [facility]; Protocol Last Admin: 12/28/18 09:08 Dose: 167 mls/hr Ketorolac Tromethamine (Toradol) 15 mg IVP Q8 PRN PRN Reason: Pain, Mild (1-3) Last Admin: 12/27/18 15:42 Dose: 15 mg Pantoprazole Sodium (Protonix Ec Tab) 40 mg PO DAILY [facility] Last Admin: 12/28/18 09:08 Dose: 40 mg Pneumococcal Polyvalent Vaccine (Pneumovax 23 Vaccine) 0.5 ml IM .ONCE ONE Stop: 12/29/18 10:01 Polyethylene Glycol (Miralax) 17 gm PO BID [facility] Last Admin: 12/28/18 09:09 Dose: Not Given Senna/Docusate Sodium (Senokot S 50 Mg-8.6 Mg) 1 tab PO HS [facility] Last Admin: 12/27/18 22:43 Dose: 1 tab Physical Exam - Constitutional Appears: No Acute Distress - Head Exam Head Exam: ATRAUMATIC, NORMOCEPHALIC - Eye Exam Eye Exam: EOMI, Normal appearance Pupil Exam: PERRL - ENT Exam ENT Exam: Mucous Membranes Moist - Respiratory Exam Respiratory Exam: NORMAL BREATHING PATTERN - Cardiovascular Exam Cardiovascular Exam: REGULAR RHYTHM - GI/Abdominal Exam GI & Abdominal Exam: Normal Bowel Sounds, Soft, Tenderness (epigastric/RUQ). absent: Distended, Firm, Guarding, Hernia, Mass, Rebound, Rigid - Extremities Exam Extremities exam: Positive for: normal capillary refill, pedal pulses present - Back Exam Back exam: absent: CVA tenderness (L), CVA tenderness (R) - Neurological Exam Neurological exam: Alert, Oriented x3 - Psychiatric Exam Psychiatric exam: Normal Affect, Normal Mood - Skin Skin Exam: Dry, Intact, Normal Color, Warm Results - Vital Signs Recent Vital Signs: Last Vital Signs Temp 97.9 F 12/28/18 15:56 Pulse 74 12/28/18 15:56 Resp 20 12/28/18 15:56 BP 124/74 12/28/18 15:56 Pulse Ox 97 12/28/18 15:56 - Labs Result Diagrams: 12/26/18 23:59 12/26/18 23:59 Labs: Laboratory Results - last 24 hr 12/27/18 19:36 Total Creatine Kinase 113 CK-MB (Mass) 0.26 Troponin I < 0.0120 Assessment & Plan - Assessment and Plan (Free Text) Assessment: 43F who presents with cholelithiasis and biliary colic Plan: -Plan for elective robotic cholecystectomy -Patient is being discharged today by primary, she will follow up next as outpatient with Dr. Ray -Gayla/hortensia for 7 days -Call office for any issues -Patient seen and Discussed with Dr. Cory Avila PGY2 - Date & Time Date: 12/28/18 Time: 16:00
--- NOTE | 2018-12-28 20:50 | CARD ---
APPROVED REPORT Date of service: 12/26/2018 EKG Measurement Heart [id number] <Conclusion> Normal sinus rhythm Normal ECG
[2018-12-29] MEDS ORDERED: Pneumococcal 23-Valent Vaccine IM ONE (10:00)
== END 2018-12-28 17:00 | disposition home or self-care (01) ==
LOC: C.ER 22:48 → C.6T 12-27 02:56
PROVIDERS: ADMIT Internal Medicine Nephrology; ATTEND Internal Medicine Nephrology
DX: K21.9 Gastro-esophageal reflux disease without esophagitis (principal); K59.09 Other constipation; E66.9 Obesity, unspecified; E28.2 Polycystic ovarian syndrome; E11.9 Type 2 diabetes mellitus without complications; I10 Essential (primary) hypertension; R79.1 Abnormal coagulation profile
CPT/HCPCS: 36415; 71046; 74176; 76705; 78582; 80053; 81001; 81025; 83690; 84484; 85025; 85378; 93005; 96374; 99285; A9540; A9558; C9113; G0378; J1650; J1885; J2280; J7030

== ENCOUNTER 2018-12-31 23:23 | Emergency (ER) | payer OTHER ==
[2018-12-31 23:23] VITALS: BMI 39.4
[2019-01-01] MEDS ORDERED: Magnesium Citrate Oral SOL (300 ml) PO ONE (01:51)
--- NOTE | 2019-01-01 01:54 | C.PDOC ---
History Of Present Illness 43 year old female presents with cramping abdominal pain and digitally reproducible pain in the sternum for the past few days. Patient was evaluated here 12/20/18 and 12/28/18, had inpatient evaluation from 12/26-, considered her abdominal pain to be related to gallstones. She was sent home on levoquin and flagyl pending outpatient follow up for elective cholecystectomy. Time Seen by Provider: 01/01/19 01:38 Chief Complaint (Nursing): Chest Pain History Per: Patient History/Exam Limitations: no limitations Onset/Duration Of Symptoms: Days Current Symptoms Are (Timing): Still Present Exacerbating Factors: None Alleviating Factors: None Recent travel outside of the [place]: No Past Medical History Reviewed: Historical Data, Nursing Documentation, Vital Signs Vital Signs: Last Vital Signs Temp 98.2 F 12/31/18 23:33 Pulse 78 12/31/18 23:33 Resp 20 12/31/18 23:33 BP 162/84 H 12/31/18 23:33 Pulse Ox 96 12/31/18 23:33 - Medical History PMH: Gastritis, HTN Denies: Chronic Kidney Disease Family History: States: Diabetes - Social History Hx Tobacco Use: No Hx Alcohol Use: Yes Hx Substance Use: No - Immunization History Hx Tetanus Toxoid Vaccination: No Hx Influenza Vaccination: No Hx Pneumococcal Vaccination: No Review Of Systems Constitutional: Negative for: Fever, Chills Respiratory: Negative for: Cough, Shortness of Breath Gastrointestinal: Positive for: Abdominal Pain Musculoskeletal: Positive for: Other (Sternum pain) Skin: Negative for: Rash Neurological: Negative for: Weakness, Numbness Physical Exam - Physical Exam Appears: Non-toxic, Other (Morbidly obese, ambulating rapidly throughout the ER, distracted, not able to focus) Skin: Normal Color, Warm Head: Atraumatic, Normacephalic Oral Mucosa: Moist Neck: Normal, Supple Chest: Tenderness (Bilateral parasternal, health education coordinator RN Flor) Cardiovascular: Rhythm Regular Respiratory: Normal Breath Sounds, No Rales, No Rhonchi, No Wheezing Gastrointestinal/Abdominal: Soft, No Tenderness, Other (Alternating dull and tympanic to percussion) Back: No CVA Tenderness Neurological/Psych: Oriented x3, Normal Speech ED Course And Treatment ECG: Interpreted By Me ECG Rhythm: Sinus Rhythm ECG Interpretation: Normal Rate From EC O2 Sat by Pulse Oximetry: 96 (Room air) Progress Note: diet reviewed, pt lives on meat, potatoes, and cooked vegetables, claims to be using laxative as prescribed, diet and exercise reviewed with poor insight. Medical Decision Making Medical Decision Making: sternal costochondritis normal EKG prior cardio evals/VQ scan neg. digitally reproducable motrin chronic constipation 3rd ED eval in 12 days most prior abd studies reveal impressive constipation again, diet/exercise/laxatives reviewed outpatient elective lap sadia pending Disposition Doctor Will See Patient In The: Office Counseled Patient/Family Regarding: Studies Performed, Diagnosis - Disposition Referrals: [facility] [Outside] [facility] [place] [Outside] [facility] [Outside] [facility] [Outside] Karlos Baxter MD [Staff Provider] - Disposition: HOME/ ROUTINE Disposition Time: 01:53 Condition: GOOD Additional Instructions: Constipation: Drink laxative now and re-eval abd discomfort after 2-3 bowel movements diet/exercise changes laxative therapies as per prior evals Costochondritis sternal/chest wall discomfort Motrin/Advil 400-600 mg every 6 hours as needed outpatient follow-up Instructions: Costochondritis, Constipation, Adult (DC) Forms: [facility] (Portuguese) - Clinical Impression Clinical Impression: Chest wall discomfort, Abdominal pain, colicky - Scribe Statement The provider has reviewed the documentation as recorded by the Scriblizette Christian All medical record entries made by the Scribe were at my direction and personally dictated by me. I have reviewed the chart and agree that the record accurately reflects my personal performance of the history, physical exam, medical decision making, and the department course for this patient. I have also personally directed, reviewed, and agree with the discharge instructions and disposition.
[2019-01-01] MEDS ORDERED: Magnesium Citrate Oral SOL (300 ml) ONE (02:03)
[2019-01-01 02:13] VITALS: BP 123/68; PULSE 66; RESP 16; TEMP 97.1
[2019-01-01 04:21] VITALS: O2SAT 96
--- NOTE | 2019-01-03 10:14 | CARD ---
APPROVED REPORT Date of service: 01/01/2019 EKG Measurement Heart [id number] ID [id number] <Conclusion> Normal sinus rhythm Possible Left atrial enlargement Nonspecific T wave abnormality Abnormal ECG
== END 2019-01-01 02:14 | disposition home or self-care (01) ==
LOC: C.ER 23:23
DX: R07.89 Other chest pain (principal); R10.84 Generalized abdominal pain; I10 Essential (primary) hypertension